=== PATIENT | male | born 1995 | race Two or more races ===

== ENCOUNTER 2017-09-07 13:38 | Emergency (ER) | payer OTHER ==
[2017-09-07 13:49] VITALS: BP 138/84
[2017-09-07] MEDS ORDERED: DIPH/PERTUSS(ACELL)/TETANUS VAC/PF 0.5 ML SYR (>=10YO) IM ONE (14:38)
--- NOTE | 2017-09-07 14:44 | ER Document Report ---
HPI - HPI Pain Level: 2 Notes: Patient is a 22-year-old male with no significant past medical history presents to the ED complaining of puncture wound to the right foot prior to arrival. Patient states that he stepped on a jean-paul nail that penetrated issue, but did not go deep into the skin. Patient is not sure of his last tetanus which is what brought him in. Patient states that he otherwise does not have any pain or discomfort. He does not have any bleeding and did not have any thereafter from the injury. Patient is able to ambulate without difficulties. No other concerns or complaints. Denies any IV drug use. Denies any headache, fever, neck pain, URI, sore throat, chest pain, palpitations, syncope, cough, shortness of breath, wheeze, dyspnea, abdominal pain, nausea/vomiting/diarrhea, urinary retention, dysuria, hematuria, numbness/tingling, muscle paralysis/ weakness, or rash. - ROS Systems Reviewed and Negative: Yes All other systems reviewed and negative Past Medical History - Social History Smoking Status: Never Smoker Family History: Reviewed & Not Pertinent Patient has suicidal ideation: No Patient has homicidal ideation: No Pulmonary Medical History: Reports: Hx Asthma Renal/ Medical History: Denies: Hx Peritoneal Dialysis - Immunizations Immunizations up to date: Yes Vertical Provider Document - CONSTITUTIONAL Agree With Documented VS: Yes Notes: PHYSICAL EXAMINATION: GENERAL: Well-appearing, well-nourished and in no acute distress. LUNGS: Breath sounds clear to auscultation bilaterally and equal. No wheezes rales or rhonchi. HEART: Regular rate and rhythm without murmurs, rubs, gallops. Musculoskeletal: Rt foot/ankle: FROM to passive/active. Strength 5+/5. Achilles intact. pinpoint erythemic area where puncture reported to be ( plantar mid foot) w/o any induration, purulence, streaks, abscesss, or tenderness. no bony tenderness. Extremities: No cyanosis, clubbing, or edema b/l. Peripheral pulses 2+. Capillary refill less than 3 seconds. NEUROLOGICAL: Normal speech, normal gait. Normal sensory, motor exams PSYCH: Normal mood, normal affect. SKIN: see above. Warm, Dry, normal turgor, no rashes or lesions noted. - INFECTION CONTROL TRAVEL OUTSIDE OF THE [place] IN LAST 30 DAYS: No Course - Re-evaluation Re-evalutation: 05/12/18 14:41 Patient is an afebrile, well-hydrated, 22-year-old male who presents to the ED with a puncture wound to the right foot. Vitals are acceptable. PE is otherwise unremarkable for any neurovascular compromise, obvious tendon/ ligament rupture, obvious fracture/dislocation, septic joint, retained foreign body. Wound was thoroughly irrigated and cleansed. Wound dressing was placed. Tetanus was updated today. Conservative measures otherwise for symptoms. Recheck with your PCM in 3-5 days. Return to the ED with any worsening/ concerning symptoms otherwise as reviewed discharge. Patient is in agreement. - Vital Signs Vital signs: Temp Pulse Resp BP Pulse Ox 98.6 F 110 H 16 138/84 H 97 09/07/17 13:47 09/07/17 13:47 09/07/17 13:47 09/07/17 13:47 09/07/17 13:47 Discharge - Discharge Clinical Impression: Puncture wound of foot Qualifiers: Encounter type: initial encounter Laterality: right Qualified Code(s): S91.331A - Puncture wound without foreign body, right foot, initial encounter Condition: Stable Disposition: HOME, SELF-CARE Instructions: Puncture Wound ([facility]), Tetanus Immunization Given ([facility]) Additional Instructions: Keep the skin clean Wash with soap and water Tylenol/ibuprofen if needed Triple antibiotic ointment daily Take medication as directed Monitor for any worsening symptoms Recheck with your PCM in 3-5 days Consider consult with Orthopedics for ongoing/worsening symptoms Return to the ED with any worsening symptoms and/or development of fever, headache, chest pain, palpitations, syncope, shortness of breath, trouble breathing, abdominal pain, n/v/d, abscess, purulent discharge, red streaks, worsening swelling, or other worsening symptoms that are concerning to you. Forms: Elevated Blood Pressure Referrals: [facility] ([place] [Provider Group] - Follow up as needed
== END 2017-09-07 14:54 | disposition home or self-care (01) ==
LOC: ER 13:38
DX: S91.331A Puncture wound without foreign body, right foot, initial encounter (principal); W22.8XXA Striking against or struck by other objects, initial encounter; J45.909 Unspecified asthma, uncomplicated
CPT/HCPCS: 90471; 90715; 99283